=== PATIENT | female | born 1965 | race African-American/Black ===

== ENCOUNTER 2023-08-21 17:37 | Emergency (ER) | payer MEDICAID, OTHER ==
[~2023-08-21] VITALS: Ht 165.1 cm; Wt 72.6 kg
[2023-08-21] MEDS ORDERED: diphenhydrAMINE 50 MG/1 ML VIAL ONE (19:49)
[2023-08-21] MEDS ORDERED: HYDROMORPHONE 1 MG/1 ML DISP.SYRIN ONE (19:49)
[2023-08-21] MEDS: diphenhydrAMINE 50 MG/1 ML VIAL IM ONE (19:56)
[2023-08-21] MEDS: HYDROMORPHONE 1 MG/1 ML DISP.SYRIN IM ONE (19:57)
[2023-08-21] MEDS ORDERED: OXYC10TA49 PO (20:39)
[2023-08-21 21:33] VITALS: BP 136/80; TEMP 98; O2SAT 98
== END 2023-08-21 21:35 | disposition home or self-care (01) ==
LOC: ER 17:42
DX: S93.491A Sprain of other ligament of right ankle, initial encounter (principal); E78.5 Hyperlipidemia, unspecified; F32.A Depression, unspecified; F41.9 Anxiety disorder, unspecified; Z79.899 Other long term (current) drug therapy; Z88.0 Allergy status to penicillin; W17.89XA Other fall from one level to another, initial encounter; Y93.89 Activity, other specified; Y92.89 Other specified places as the place of occurrence of the external cause; Y99.8 Other external cause status
CPT/HCPCS: 29515; 73560; 73590; 73610; 96372; 99284; J1170; J1200; A4606; A4663

== ENCOUNTER 2024-03-20 23:20 | Emergency (ER) | payer MEDICAID ==
[~2024-03-20] VITALS: Ht 165.1 cm; Wt 62.6 kg
[~2024-03-20 23:20] MED LIST: OXYC10TA49 PO
[2024-03-20] MEDS ORDERED: HYDR-3980 PO (23:45)
[2024-03-20] MEDS ORDERED: DICL50TA7 PO (23:45)
[2024-03-20 23:52] VITALS: BP 144/88; O2SAT 99
== END 2024-03-20 23:52 | disposition home or self-care (01) ==
LOC: ER 23:22
DX: M54.30 Sciatica, unspecified side (principal); E78.5 Hyperlipidemia, unspecified; Z79.899 Other long term (current) drug therapy; Z88.0 Allergy status to penicillin; Z88.6 Allergy status to analgesic agent
CPT/HCPCS: A4606; A4663